=== PATIENT | male | born 1955 | race Caucasian/White ===

== ENCOUNTER 2022-02-14 10:07 | Day surgery (SDC) | payer MEDICARE ==
[~2022-02-14] VITALS: Ht 177.8 cm; Wt 75.8 kg
[2022-02-14] VITALS (7 sets, daily range): BP systolic 97–189; BP diastolic 68–97; PULSE 46–84; TEMP 97.6–98.9
--- NOTE | 2022-02-14 10:40 | NUR ---
Pt arrived on cart from endo suite drowsy but oriented. Pt was assisted ambulating from cart to chair. Vitals obtainted. Verbal room report obtained. Pt requested apple juice to drink. Call ron is within reach on side table. is present.
--- NOTE | 2022-02-14 10:55 | NUR ---
Pt is tolerating his juice well, requested more with a warm muffin. Denies nausea. No vomiting. Vitals obtained.
--- NOTE | 2022-02-14 11:10 | NUR ---
Vitals obtained. DC instructions and educational material reviewed with the pt and his . Both verbalized understanding and the pt signed the related paperwork. Pt denied having questions or concerns. IV discontinued. Catheter tip intact. Pressure bandage applied. No redness or swelling noted. Call ron is within reach on side table. Pt denied needing assistance changing into personal clothes.
--- NOTE | 2022-02-14 11:30 | NUR ---
Pt dismissed from endo via wheelchair to the pt entrence and transferred into the care of his , who is present to drive. Pt had DC packet in hand and personal belongings
--- NOTE | 2022-02-14 12:00 | NUR ---
Pt arrived from PACU on a cart, escorted by Yovana GUSTAFSON. Pt is drowsy but oriented. Sister is present in the room. Pt assisted from cart to chair by x2 RNs, gait is unsteady. Vitals obtained. is in to speak with pt, questions answered. Baring juice and chocolate pudding provided per pt request. Call ron is within reach on side table.
--- NOTE | 2022-02-14 12:15 | NUR ---
Vitals obtained. Pt continues to deny nausea. Ice water provided. Pt states he is" very thirsty". Pt expressed desire to be discharged. Call ron remains within reach.
--- NOTE | 2022-02-14 12:30 | NUR ---
Vitals obtained. Pt then ambulated to bathroom without difficulty, and was able to void successfully. IV was then disconnencted. Catheter tip intact. Pressure dressing applied. NO redness or swelling noted. Pt changed into his personal clothes. DC instructions and educational material was reviewed with the pt and his sister. Pt denied having any questions or concerns. Pt was then dismissed from endo via wheelchair to the pt entrence. Pt has DC packet in hand and personal belonings. Pt transferred into the care of his sister, who is present to drive.
== END 2022-02-14 12:55 | disposition home or self-care (01) ==
LOC: SDCO 10:07
DX: T18.128A Food in esophagus causing other injury, initial encounter (principal); K31.7 Polyp of stomach and duodenum; K22.2 Esophageal obstruction; K20.90 Esophagitis, unspecified without bleeding; K29.30 Chronic superficial gastritis without bleeding
CPT/HCPCS: J0330; J2704; J3010; J7030

== ENCOUNTER → 2024-07-15 | Outpatient (CLI) | payer MEDICARE ==
[2024-07-15] VITALS (8 sets, daily range): BP systolic 129–152; BP diastolic 70–80; PULSE 87–96; TEMP 98.6
[~2024-07-15] VITALS: Ht 177.8 cm; Wt 72.0 kg
[~2024-07-15] MED LIST: ASPIRIN 81M81 MG/TA2 PO; COREG 3.123.125 MG/T PO; DIFLUCAN200 MG PO; MULTI VITAMINS1 TAB PO; Midazolam 2 MG/2 ML VIAL IV SCH; NORVASC 5MG5 MG/TAB PO; PROTONIX 40MG T40 MG PO; VITAMIN B12 781 TAB PO; fentaNYL 50 MCG/ML 2 ML VIAL IV SCH
[2024-07-15 08:37] LABS: HEMOGLOBIN 10.2 g/dl (13.5-18.0); MEAN CELL VOLUME 114 fl (80.0-100.0); MEAN CORPUSCULAR HEMOGLOBIN 36 pg (27-31); MEAN CORPUSCULAR HGB CONC 32 g/dl (33.0-37.0); MEAN PLATELET VOLUME 11.3 fl (7.4-10.4); PLATELET COUNT 166 K/mm3 (130-400); RED BLOOD COUNT 2.81 M/mm3 (4.20-5.60); REDCELL DISTRIBUTION WIDTH-CV 14.2 % (11.5-14.5)
[2024-07-15 08:43] LABS: HEMATOCRIT 31.9 % (42.0-52.0)
[2024-07-15 10:43] LABS: BAND 4 % (0-10); LYMPHOCYTE 88 % (20.0-51.0)
[2024-07-15 10:44] LABS: HYPOCHROMIA 1+; PLATELET ESTIMATE NORMAL (NORMAL)
[2024-07-15 10:46] LABS: NEUTROPHILS 7 % (42.0-75.2)
--- NOTE | 2024-07-15 11:27 | NUR ---
SPECIMEN COLLECTED AT 1008.
== END ==
LOC: COL.RAD 08:30
PROVIDERS: Internal Medicine
DX: C91.10 Chronic lymphocytic leukemia of B-cell type not having achieved remission (principal)
CPT/HCPCS: J2250; J3010